=== PATIENT | male | born 1975 | race Caucasian/White ===

== ENCOUNTER 2019-01-02 14:51 | Emergency (ER) | payer MEDICAID, OTHER ==
[~2019-01-02] VITALS: Ht 160 cm; Wt 64.4 kg
--- NOTE | 2019-01-02 15:25 | NUR ---
PT AMBULATORY TO RME FROM LOBBY WITH STEADY GAIT, NAD NOTED. CMS INTACT. RESP REGULAR, EVEN AND UNLABORED. A&OX4. MERLE GRANT AT BEDSIDE FOR EVALAUTION. CALL LIGHT IN REACH. FALL PRECAUTIONS IN PLACE.
[2019-01-02] MEDS ORDERED: DIAZEPAM 5 MG TABLET PO ONE (15:30)
[2019-01-02] MEDS ORDERED: KETOROLAC 30 MG/1 ML IM ONE (15:30)
--- NOTE | 2019-01-02 15:50 | NUR ---
PT IN RAD, TO MEDICATE UPON RETURN
[2019-01-02] MEDS ORDERED: KETOROLAC 30 MG/1 ML ONE (15:56)
[2019-01-02] MEDS ORDERED: DIAZEPAM 5 MG TABLET ONE (15:56)
--- NOTE | 2019-01-02 16:30 | NUR ---
PT MEDICATED NOTED IN [facility] FOR 8.5/10 PAIN. NAD NOTED. CALL LIGHT IN REACH. FALL PRECAUTIONS IN PLACE.
--- NOTE | 2019-01-02 17:00 | NUR ---
PT DROWSY. RESP REGULAR AND UNLABORED. VSS. PULSE OX 97% RA. TO DISCHARGE WITH ABLE TO AMBULATE WITH STEADY GAIT. REMAINS A&OX4. CALL LIGHT IN REACH. FALL PRECAUTIONS IN PLACE
--- NOTE | 2019-01-02 17:33 | NUR ---
PT UP AND AMBULATORY TO RESTROOM WITH STEADY GAIT. REPORTS PAIN IMPROVED TO 4/10 IN LEFT RIBS. DENIES CP, SOB. VSS. CALL LIGHT IN REACH. FALL PRECAUTIONS IN PLACE. TO DISCHARGE PER MERLE GRANT ORDER.
[2019-01-02 17:34] VITALS: BP 132/81
== END 2019-01-02 17:39 | disposition home or self-care (01) ==
LOC: ED 17:15
DX: R07.89 Other chest pain (principal); J18.9 Pneumonia, unspecified organism
CPT/HCPCS: 71101; 96372; 99283; J1885

== ENCOUNTER 2020-01-23 18:37 | Emergency (ER) | payer MEDICAID ==
[~2020-01-23] VITALS: Ht 167.6 cm; Wt 61.8 kg
[2020-01-23 19:02] VITALS: BP 124/75
--- NOTE | 2020-01-23 19:06 | NUR ---
EKG IN TRIAGE
[2020-01-23 19:34] LABS: ALBUMIN 3.3 g/dL (3.4-5.0); ANION GAP 5 mmol/L (5-15); CALCIUM 9.6 mg/dL (8.5-10.1); CHLORIDE 100 mmol/L (98-107)
[2020-01-23 19:35] LABS: CREATININE 0.93 mg/dL (0.7-1.3)
[2020-01-23 19:37] LABS: MEAN CORPUSCULAR HEMOGLOBIN 30.3 pg (27.5-34.5); MEAN CORPUSCULAR HGB CONC 34.4 g/dL (33.2-36.2); MEAN PLATELET VOLUME 7.3 fL (7.4-10.4); PLATELET COUNT 359 x10^3/uL (130-400); RED BLOOD COUNT 5.63 x10^6/uL (4.38-5.82); RED CELL DISTRIBUTION WIDTH 13.3 % (9.4-14.8)
[2020-01-23 19:55] LABS: MD YES
[2020-01-23 19:58] LABS: BAND#(MANUAL) 0.64 x10^3/uL; BANDS%(MANUAL) 5 % (0-7); BASOS#(MANUAL) 0.13 x10^3/uL (0-0.1); BASOS% (MANUAL) 1 % (0-1); EOS#(MANUAL) 0.38 x10^3/uL (0.0-0.4); EOS% (MANUAL) 3 % (1-7); LYMPHS% (MANUAL) 18 % (22-44); METAMYELOCYTES# (MANUAL) 0.13 x10^3/uL (0-0); METAMYELOCYTES% (MANUAL) 1 % (0-1); MONOS% (MANUAL) 7 % (2-9); SEG#(MANUAL) 8.32 x10^3/uL (1.8-6.8); SEGS% (MANUAL) 65 % (42-75)
[2020-01-23 20:00] LABS: <PLATELET ESTIMATE> ADEQUATE; <PLT MORPHOLOGY> NORMAL PLT MORPH; <RBC MORPHOLOGY> NORMAL
--- NOTE | 2020-01-23 21:15 | NUR ---
not in lobby
--- NOTE | 2020-01-23 21:35 | NUR ---
not in lobby
== END 2020-01-23 21:59 ==
LOC: ED 21:48
DX: J18.9 Pneumonia, unspecified organism (principal); R00.0 Tachycardia, unspecified
CPT/HCPCS: 36415; 80048; 82040; 85025; 93005; 99284